=== PATIENT | female | born 2000 | race Caucasian/White ===

== ENCOUNTER 2024-03-18 23:35 | Emergency (ER) | payer OTHER, SELFPAY ==
[2024-03-18 23:40] VITALS: BP 125/79; PULSE 87; RESP 16; TEMP 36.5; O2SAT 99; BMI 25.5
--- NOTE | 2024-03-19 02:17 | ED.WOUNDLAC ---
HPI - Wound/Laceration General Chief Complaint: Wound/Laceration Stated Complaint: rt hand middle finger nail ripped off Time Seen by Provider: 03/19/24 02:16 Source: patient Mode of arrival: Ambulatory History of Present Illness HPI narrative: Patient is a healthy 23-year-old female presenting today with right middle finger nail injury. Reports that she was roller-skating when she fell bending her well manicured nails backward. Nail is still in place but still having pain especially at the DIP joint. She was able to flex at the PIP joint but the other is more pain no laceration Related Data Home Medications Medication Instructions Recorded Confirmed cholecalciferol (vitamin D3) 25 1,000 unit PO QDAY ##0 08/12/16 11/15/17 mcg (1,000 unit) tablet (Vitamin D3) multivit [id number] PO 11/15/17 11/15/17 [Hair, Skin and Nails Advanced] Allergies Allergy/AdvReac Type Severity Reaction Status Date / Time No Known Drug Allergies Allergy Verified 11/15/17 14:08 Patient History Family History (Updated 06/28/15 @ 00:00 by Conversion Provider) Father Age: 58 DVT (deep venous thrombosis) Grandmother Age: 88 COPD (chronic obstructive pulmonary disease) Social History Smoking Status: Never smoker Smoking Status: Never smoker Exam Initial Vital Signs Initial Vital Signs: Vital Signs Temperature 97.7 F 03/18/24 23:40 Pulse Rate 87 03/18/24 23:40 Respiratory Rate 16 03/18/24 23:40 Blood Pressure 125/79 03/18/24 23:40 Pulse Oximetry 99 03/18/24 23:40 Oxygen Delivery Method Room Air 03/18/24 23:40 GENERAL: Well-appearing, well-nourished and in no acute distress. CARDIOVASCULAR: peripheral pulses in tact, cap refill <2 sec RESPIRATORY: No respiratory distress, speaks in full sentences without difficulty EXTREMITIES: Normal range of motion, no clubbing or edema. Neurovascularly intact Right hand middle finger nail is in place but it does appear that nail is probably bent backwards. She was able to flex and extend at MCP PIP decreased flexion at the DIP joint, nail bed intact NEUROLOGICAL: Cranial nerves II through XII grossly intact. Normal gait and speech. SKIN: Warm, dry, no petechiae, no rashes or lesions. Course Vital Signs Vital signs: Vital Signs - 8 hr 03/18/24 23:40 03/19/24 02:25 Temperature 97.7 F Pulse Rate 87 76 Respiratory Rate 16 16 Blood Pressure 125/79 124/58 L Pulse Oximetry 99 99 Oxygen Delivery Method Room Air Room Air MDM - Wound/Laceration MDM Narrative Medical decision making narrative: Patient is a 23-year-old female presenting today with right middle finger injury. Sounds as though was hyper extended. She did bend the nail back but remains in place. No significant nail bed injury. She was have some decreased range of motion at the D IP joint. Possible tendon injury. Patient was placed in a finger splint recommended outpatient follow-up [place]. Elevation and ice and supportive care. All questions have been addressed. Discharge Plan Departure Patient Disposition: Home Clinical Impression: Sprain of interphalangeal joint of right middle finger, initial encounter Instructions: DI for Finger Flexor Tendon Injury Activity Restrictions/Additional Instructions: *You have been diagnosed with nail injury and flexor tendon injury *What to do: This time keep finger in splint to help protect nail. I do recommend that he follow up with ortho once you get home in regards to your finger. Increase activity and movement as tolerated Okay to shower keep clean and dry with soap and water *Continue to take medications as directed Tylenol Motrin as needed for pain *Follow up with your primary care provider in 2-3 days or call [phone] *Return to ER if you should have increasing pain redness swelling or any new, worsening or concerning symptoms Prescriptions: No Action multivit [id number] PO cholecalciferol (vitamin D3) [Vitamin D3] 1,000 UNIT tablet 1,000 unit PO QDAY Qty: 0 Stand Alone Forms: Patient Portal/API/Survey
[2024-03-19 02:25] VITALS: BP 124/58; PULSE 76; RESP 16; O2SAT 99
== END 2024-03-19 02:35 | disposition home or self-care (01) ==
PROVIDERS: Emergency Provider Emergency Medicine
DX: S63.632A Sprain of interphalangeal joint of right middle finger, initial encounter (principal); X50.9XXA Other and unspecified overexertion or strenuous movements or postures, initial encounter
CPT/HCPCS: 29130; 99281; 99283